=== PATIENT | female | born 1960 | race Caucasian/White ===

== ENCOUNTER 2018-11-22 07:48 | Emergency (ER) | payer OTHER ==
[2018-11-22] MEDS: DEXAMETHASONE 10 MG/ML 1 ML INJ IM (08:21)
[2018-11-22] MEDS: ALBUTEROL 0.083% (NEB) 2.5 MG/3 ML AMP HHN (08:31)
[2018-11-22] MEDS: IPRATROPIUM (NEB) 0.5 MG/2.5 ML AMP HHN (08:31)
== END 2018-11-22 10:00 | disposition home or self-care (01) ==
LOC: FTE 07:48
DX: R05 Cough (principal)
CPT/HCPCS: 71045; 94664; 96372; 99284-25

== ENCOUNTER 2019-03-16 11:21 | Emergency (ER) | payer OTHER ==
[2019-03-16] MEDS: KETOROLAC 15 MG INJ IM (14:31)
== END 2019-03-16 15:51 | disposition home or self-care (01) ==
LOC: E/R 11:21
DX: M94.0 Chondrocostal junction syndrome [Tietze] (principal)
CPT/HCPCS: 71045; 93005; 96372; 99284-25